=== PATIENT | female | born 1990 | race Caucasian/White ===

== ENCOUNTER 2022-01-24 16:40 | Emergency (ER) | payer BC, OTHER ==
[~2022-01-24] VITALS: Ht 165.1 cm; Wt 72.6 kg
[~2022-01-24 16:40] MED LIST: CLON1TAB3 PO
[2022-01-24 17:50] VITALS: BP 111/75
--- NOTE | 2022-01-24 21:41 | NUR ---
CALLED PATIENT . NO RESPONSE
--- NOTE | 2022-01-24 22:04 | NUR ---
CALLED PT TO THE ER BED. NO ANSWER
--- NOTE | 2022-01-24 22:30 | NUR ---
CALLED PT TO THE ER BED. NO ANSWER
== END 2022-01-24 22:33 | disposition left against medical advice (07) ==
LOC: ER 16:40
DX: Z53.21 Procedure and treatment not carried out due to patient leaving prior to being seen by health care provider (principal)

== ENCOUNTER 2023-06-13 15:44 | Inpatient (IN) | payer BC ==
[~2023-06-13] VITALS: Ht 162.6 cm; Wt 95.3 kg
[2023-06-13] MEDS ORDERED: HYDROMORPHONE 1 MG/1 ML DISP.SYRIN ONE ×3 (15:55→16:50)
[2023-06-13] MEDS ORDERED: ONDANSETRON 4 MG TAB.RAPDIS ONE (15:56)
[2023-06-13] MEDS: ONDANSETRON 4 MG TAB.RAPDIS SL ONE (16:00)
[2023-06-13] MEDS: HYDROMORPHONE 1 MG/1 ML DISP.SYRIN IM ONE (16:01)
[2023-06-13] MEDS ORDERED: ONDANSETRON HCL/PF 4 MG/2 ML VIAL ONE (16:47)
[2023-06-13] MEDS: ONDANSETRON HCL/PF 4 MG/2 ML VIAL IVP ONE (16:48)
[2023-06-13] MEDS: HYDROMORPHONE INJ 2 MG/ML DISP.SYRIN IV ONE (16:48)
[2023-06-13] MEDS: IV NS 0.9% 1,000 ML BAG IV ONE (16:58)
[2023-06-13] MEDS: HYDROMORPHONE 1 MG/1 ML DISP.SYRIN IV ONE (17:00)
[2023-06-13 17:20] LABS: BASOPHILS % (AUTO) 0.3 % (0.0-2.0); EOSINOPHILS # (AUTO) 0.1 K/uL (0.0-0.7); EOSINOPHILS % (AUTO) 1.3 % (0.0-6.0); HEMATOCRIT 44 % (33-45); HEMOGLOBIN 14.9 g/dL (11.5-14.8); LYMPHOCYTES # (AUTO) 2.1 K/uL (0.8-4.8); LYMPHOCYTES % (AUTO) 19.9 % (20.0-44.0); MEAN CORPUSCULAR HEMOGLOBIN 31 PG (26.0-33.0); MEAN CORPUSCULAR HGB CONC 34 g/dl (31.0-36.0); MEAN CORPUSCULAR VOLUME 90 fL (82-100); MONOCYTES # (AUTO) 0.8 K/uL (0.1-1.30); MONOCYTES % (AUTO) 7.3 % (2.0-12.0); NEUTROPHILS # (AUTO) 7.5 K/uL (1.8-8.9); NEUTROPHILS % (AUTO) 71.2 % (43.0-81.0); PLATELET COUNT (AUTO) 307 K/uL (150-450); RED BLOOD CELL COUNT(AUTO) 4.89 MIL/uL (4.0-5.2); RED CELL DISTRIBUTION WIDTH 13.7 % (11.5-15.0); WHITE BLOOD COUNT (AUTO) 10.5 K/uL (4.3-11.0)
[2023-06-13 17:39] LABS: PARTIAL THROMBOPLASTIN TIME 25.4 SEC (24.3-34.3); PROTHROMBIN TIME 10.6 SECS (9.2-11.1)
[2023-06-13 17:45] LABS: CALCIUM, SERUM 9.5 mg/dL (8.5-10.1); CREATININE 1.1 mg/dL (0.6-1.3); POTASSIUM 4.3 mmol/L (3.5-5.1)
[2023-06-13] MEDS ORDERED: ARIP10TA9 PO (19:22)
[2023-06-13] MEDS ORDERED: CLON0.5T4 PO (19:22)
[2023-06-13] MEDS ORDERED: SERT50TA12 PO (19:22)
[2023-06-13] MEDS ORDERED: ONDA-97 PO (19:24)
[2023-06-13] MEDS ORDERED: ZOLPIDEM TARTRATE 5 MG TABLET PO PRN (20:00)
[2023-06-13] MEDS ORDERED: ACETAMINOPHEN 325 MG TABLET PO PRN (20:00)
[2023-06-13] MEDS ORDERED: MAGNESIUM HYDROXIDE 30 ML UDC PO PRN (20:00)
[2023-06-13] MEDS ORDERED: Z GUARD REMEDY 4 OZ OINT TP PRN (20:00)
[2023-06-13] MEDS ORDERED: MAG HYDROX/AL HYDROX/SIMETH 30 ML UDC PO PRN (20:00)
[2023-06-13] MEDS ORDERED: MORPHINE SULFATE INJ 2 MG/ML DISP.SYRIN ONE (20:56)
[2023-06-13] MEDS: MORPHINE SULFATE INJ 2 MG/ML DISP.SYRIN IV PRN (21:01)
[2023-06-13] MEDS: IV NS 0.9% 1,000 ML IV PRN (21:52)
[2023-06-13] MEDS: SERTRALINE HCL 50 MG TABLET PO SCH (22:46)
[2023-06-13] MEDS: ARIPIPRAZOLE 5 MG TABLET PO SCH (22:47)
[2023-06-13] MEDS: HYDROCODONE/APAP 10/325MG TABLET PO PRN (23:52)
[2023-06-14] MEDS: HYDROMORPHONE 1 MG/1 ML DISP.SYRIN IV PRN (02:01)
[2023-06-14 07:59] LABS: BASOPHILS % (AUTO) 0.2 % (0.0-2.0); EOSINOPHILS # (AUTO) 0.1 K/uL (0.0-0.7); EOSINOPHILS % (AUTO) 1.4 % (0.0-6.0); HEMATOCRIT 39 % (33-45); LYMPHOCYTES # (AUTO) 1.8 K/uL (0.8-4.8); LYMPHOCYTES % (AUTO) 19.3 % (20.0-44.0); MEAN CORPUSCULAR HEMOGLOBIN 31 PG (26.0-33.0); MEAN CORPUSCULAR HGB CONC 34 g/dl (31.0-36.0); MEAN CORPUSCULAR VOLUME 92 fL (82-100); MONOCYTES # (AUTO) 0.9 K/uL (0.1-1.30); MONOCYTES % (AUTO) 9.7 % (2.0-12.0); NEUTROPHILS # (AUTO) 6.5 K/uL (1.8-8.9); NEUTROPHILS % (AUTO) 69.4 % (43.0-81.0); PLATELET COUNT (AUTO) 254 K/uL (150-450); RED BLOOD CELL COUNT(AUTO) 4.23 MIL/uL (4.0-5.2); RED CELL DISTRIBUTION WIDTH 13.6 % (11.5-15.0); WHITE BLOOD COUNT (AUTO) 9.3 K/uL (4.3-11.0)
[2023-06-14 08:00] VITALS: BP 107/81; TEMP 97.9; O2SAT 96
[2023-06-14 08:44] LABS: CALCIUM, SERUM 8.5 mg/dL (8.5-10.1); CREATININE 0.9 mg/dL (0.6-1.3); MAGNESIUM 2.1 mg/dL (1.8-2.4); PHOSPHORUS 4.3 mg/dL (2.5-4.9); POTASSIUM 4.3 mmol/L (3.5-5.1)
[2023-06-14] MEDS ORDERED: SERTRALINE HCL 50 MG TABLET PO SCH (09:00)
[2023-06-14] MEDS ORDERED: ARIPIPRAZOLE 5 MG TABLET PO SCH (09:00)
[2023-06-14] MEDS ORDERED: BUPIVACAINE 0.5 % PF 150 MG/30 ML VIAL ONE ×2 (11:19→12:45)
[2023-06-14] MEDS ORDERED: POLYMYXIN B SULFATE 0 UNITS ONE (11:19)
[2023-06-14] MEDS ORDERED: HYDROMORPHONE INJ 2 MG/ML DISP.SYRIN ONE (12:51)
[2023-06-14] MEDS ORDERED: FENTANYL PF 100MCG/2ML AMPUL ONE (12:51)
[2023-06-14] MEDS ORDERED: ROCURONIUM BROMIDE 50 MG/5 ML ONE (12:52)
[2023-06-14] MEDS ORDERED: MIDAZOLAM HCL 2 MG/2ML VIAL ONE (12:52)
[2023-06-14 13:57] LABS: APPEARANCE,URINE CLOUDY (CLEAR); BILIRUBIN,URINE NEGATIVE (NEGATIVE); BLOOD, URINE NEGATIVE Ery/uL (NEGATIVE); COLOR,URINE YELLOW (YELLOW); KETONES,URINE NEGATIVE (NEGATIVE); LEUKOCYTE ESTERASE ,URINE NEGATIVE (NEGATIVE); NITRITE, URINE NEGATIVE (NEGATIVE); PH,URINE 7.5 (5.0-8.0); PROTEIN,URINE NEGATIVE (NEGATIVE); UGLUCOSE NEGATIVE (NEGATIVE); UROBILINOGEN,URINE 0.2 EU/dL (0.2)
[2023-06-14 13:59] LABS: PREGNANCY TEST URINE QUAL NEGATIVE (NEGATIVE)
[2023-06-14] MEDS ORDERED: HYDROMORPHONE 1 MG/1 ML DISP.SYRIN ONE (15:24)
[2023-06-14 16:00] VITALS: BP_SYST 104; BP_SYST 112; BP_DIAS 65; BP_DIAS 70; TEMP 97.3; TEMP 98.1; O2SAT 100; O2SAT 91
[2023-06-14 17:00] VITALS: BP 116/69; TEMP 98.2; O2SAT 93
[2023-06-14 18:37] VITALS: BP 117/72; TEMP 98.2; O2SAT 95
[2023-06-14 20:00] VITALS: BP 112/71; TEMP 97.3; O2SAT 95
[2023-06-14] MEDS: MORPHINE SULFATE INJ 2 MG/ML DISP.SYRIN IV PRN (20:23)
[2023-06-14] MEDS: ONDANSETRON HCL/PF 4 MG/2 ML VIAL IVP PRN (20:35)
[2023-06-14] MEDS: CEFAZOLIN 2 GM in IV D5W 100 ML IV SCH (21:13)
[2023-06-14] MEDS: HYDROMORPHONE 1 MG/1 ML DISP.SYRIN IV ONE (23:10)
[2023-06-15] MEDS: clonazePAM 0.5 MG TABLET PO PRN (01:12)
[2023-06-15 03:22] VITALS: BP 115/71
[2023-06-15] MEDS: HYDROMORPHONE 1 MG/1 ML DISP.SYRIN IV PRN ×2 (03:25→11:00)
[2023-06-15 07:27] LABS: BASOPHILS % (AUTO) 0.1 % (0.0-2.0); EOSINOPHILS % (AUTO) 0.4 % (0.0-6.0); HEMATOCRIT 35 % (33-45); HEMOGLOBIN 11.8 g/dL (11.5-14.8); LYMPHOCYTES # (AUTO) 1.7 K/uL (0.8-4.8); LYMPHOCYTES % (AUTO) 16.3 % (20.0-44.0); MEAN CORPUSCULAR HEMOGLOBIN 31 PG (26.0-33.0); MEAN CORPUSCULAR HGB CONC 34 g/dl (31.0-36.0); MEAN CORPUSCULAR VOLUME 92 fL (82-100); MONOCYTES # (AUTO) 0.9 K/uL (0.1-1.30); NEUTROPHILS # (AUTO) 7.5 K/uL (1.8-8.9); NEUTROPHILS % (AUTO) 74.2 % (43.0-81.0); PLATELET COUNT (AUTO) 231 K/uL (150-450); RED BLOOD CELL COUNT(AUTO) 3.77 MIL/uL (4.0-5.2); RED CELL DISTRIBUTION WIDTH 13.6 % (11.5-15.0); WHITE BLOOD COUNT (AUTO) 10.2 K/uL (4.3-11.0)
[2023-06-15 07:41] LABS: CALCIUM, SERUM 7.9 mg/dL (8.5-10.1); CREATININE 0.7 mg/dL (0.6-1.3); MAGNESIUM 2.2 mg/dL (1.8-2.4); PHOSPHORUS 3.4 mg/dL (2.5-4.9); POTASSIUM 3.8 mmol/L (3.5-5.1)
[2023-06-15 08:00] VITALS: BP 103/71; TEMP 98.2; O2SAT 95
[2023-06-15] MEDS: ENOXAPARIN SODIUM 40 MG/0.4 ML DISP.SYRIN SQ SCH (09:00)
[2023-06-15] MEDS: PREGABALIN 25 MG CAPSULE PO SCH (09:52)
[2023-06-15 16:00] VITALS: BP 117/70; TEMP 98.6; O2SAT 95
[2023-06-15 20:00] VITALS: BP 111/73; TEMP 98.6; O2SAT 95
[2023-06-16 05:18] VITALS: O2SAT 95
[2023-06-16 07:00] VITALS: BP 116/75; TEMP 98.2; O2SAT 92
[2023-06-16 07:36] LABS: CALCIUM, SERUM 8.3 mg/dL (8.5-10.1); CREATININE 0.7 mg/dL (0.6-1.3); POTASSIUM 3.9 mmol/L (3.5-5.1)
[2023-06-16 07:54] LABS: BASOPHILS % (AUTO) 0.2 % (0.0-2.0); EOSINOPHILS # (AUTO) 0.1 K/uL (0.0-0.7); EOSINOPHILS % (AUTO) 0.9 % (0.0-6.0); HEMATOCRIT 35 % (33-45); LYMPHOCYTES # (AUTO) 1.8 K/uL (0.8-4.8); LYMPHOCYTES % (AUTO) 19.5 % (20.0-44.0); MEAN CORPUSCULAR HEMOGLOBIN 31 PG (26.0-33.0); MEAN CORPUSCULAR HGB CONC 34 g/dl (31.0-36.0); MEAN CORPUSCULAR VOLUME 92 fL (82-100); MONOCYTES # (AUTO) 0.8 K/uL (0.1-1.30); MONOCYTES % (AUTO) 8.6 % (2.0-12.0); NEUTROPHILS # (AUTO) 6.5 K/uL (1.8-8.9); NEUTROPHILS % (AUTO) 70.8 % (43.0-81.0); PLATELET COUNT (AUTO) 229 K/uL (150-450); RED BLOOD CELL COUNT(AUTO) 3.83 MIL/uL (4.0-5.2); RED CELL DISTRIBUTION WIDTH 13.5 % (11.5-15.0); WHITE BLOOD COUNT (AUTO) 9.2 K/uL (4.3-11.0)
[2023-06-16 08:25] VITALS: O2SAT 96
[2023-06-16] MEDS: MELOXICAM 7.5 MG TABLET PO SCH (09:54)
[2023-06-16] MEDS ORDERED: oxyCODONE/APAP (5/325 MG) 1 UDTAB TABLET PO PRN (10:30)
[2023-06-16 16:00] VITALS: BP 110/77; TEMP 98; O2SAT 93
[2023-06-16] MEDS: GABAPENTIN 100 MG CAPSULE PO SCH (17:22)
[2023-06-16 20:00] VITALS: BP 105/72; TEMP 99; O2SAT 98
[2023-06-16] MEDS: SERTRALINE HCL 50 MG TABLET PO SCH (23:01)
[2023-06-17 08:00] VITALS: BP 108/74; TEMP 98.4; O2SAT 97
[2023-06-17] MEDS: MAGNESIUM OXIDE 400 MG TABLET PO ONE (13:20)
[2023-06-17 16:10] VITALS: BP 109/75; TEMP 98.2; O2SAT 96
[2023-06-17 20:00] VITALS: BP 110/76; TEMP 98.6; O2SAT 94
[2023-06-17] MEDS: oxyCODONE/APAP (5/325 MG) 1 UDTAB TABLET PO PRN (23:10)
[2023-06-18 07:30] VITALS: BP 98/67; TEMP 97.8; O2SAT 98
[2023-06-18] MEDS ORDERED: GABA-532 PO (11:17)
[2023-06-18] MEDS ORDERED: MELO15TA13 PO (11:17)
[2023-06-18] MEDS ORDERED: OXYC-128 PO (11:17)
[2023-06-18] MEDS ORDERED: ASPI-992 PO (11:17)
== END 2023-06-18 13:49 | disposition home or self-care (01) | DRG 494 ==
LOC: ER 15:49 → MED 20:16
PROVIDERS: ADMIT Nurse Practitioner Acute Care; ATTEND Nurse Practitioner Family
PROC: 0QSG04Z Reposition Right Tibia with Internal Fixation Device, Open Approach (ICD-10-PCS; principal; 2023-06-14)
PROC: 0QSJ04Z Reposition Right Fibula with Internal Fixation Device, Open Approach (ICD-10-PCS; 2023-06-14)
DX: S82.51XA Displaced fracture of medial malleolus of right tibia, initial encounter for closed fracture (principal); S82.61XA Displaced fracture of lateral malleolus of right fibula, initial encounter for closed fracture; F32.A Depression, unspecified; F41.9 Anxiety disorder, unspecified; E66.9 Obesity, unspecified; Z68.36 Body mass index [BMI] 36.0-36.9, adult; W19.XXXA Unspecified fall, initial encounter; Y93.9 Activity, unspecified; Y92.009 Unspecified place in unspecified non-institutional (private) residence as the place of occurrence of the external cause; R33.9 Retention of urine, unspecified; F41.1 Generalized anxiety disorder
CPT/HCPCS: 36415; 71045-TC; 73600-TC; 73610-TC; 80048-TC; 83735-TC; 84100-TC; 84702-TC; 84703-TC; 85025-TC; 85730-TC; 94799-TC; 97110-TC; 97112-TC; 97116-TC; 97530-TC; A4223; G0378; J0690; J1100; J1170; J1650; J2250; J2270; J2405; J2704; J2765; J3010; J3490; J7030; J7042; J7060; Q0162